=== PATIENT | male | born 1980 | race African-American/Black ===

== ENCOUNTER 2016-11-14 13:42 | Emergency (ER) | payer MEDICAID ==
[~2016-11-14] VITALS: Ht 172.7 cm; Wt 81.0 kg
[2016-11-14 13:44] VITALS: BP 106/77
== END 2016-11-15 00:15 | disposition left against medical advice (07) ==
LOC: ER 19:57
DX: S61.451A Open bite of right hand, initial encounter (principal); F17.200 Nicotine dependence, unspecified, uncomplicated; F15.10 Other stimulant abuse, uncomplicated; E11.9 Type 2 diabetes mellitus without complications; Z86.59 Personal history of other mental and behavioral disorders; W54.0XXA Bitten by dog, initial encounter; Y93.89 Activity, other specified; Y92.89 Other specified places as the place of occurrence of the external cause; Y99.8 Other external cause status

== ENCOUNTER 2016-11-28 22:27 | Emergency (ER) | payer MEDICAID ==
[~2016-11-28] VITALS: Ht 167.6 cm; Wt 68.0 kg
[2016-11-28 22:31] VITALS: BP 126/78
== END 2016-11-29 07:51 | disposition left against medical advice (07) ==
LOC: ER 22:50
DX: R06.02 Shortness of breath (principal); Z53.21 Procedure and treatment not carried out due to patient leaving prior to being seen by health care provider

== ENCOUNTER 2016-12-01 07:58 | Emergency (ER) | payer MEDICAID ==
[~2016-12-01] VITALS: Ht 177.8 cm; Wt 80.0 kg
[2016-12-01] MEDS ORDERED: HYDROCODONE/ACETAMINOPHEN 5/325MG TABLET PO ONE (09:45)
[2016-12-01 10:39] VITALS: BP 108/71
== END 2016-12-01 12:15 | disposition home or self-care (01) ==
LOC: ER 08:04
DX: Z76.0 Encounter for issue of repeat prescription (principal); R51 Headache; F20.9 Schizophrenia, unspecified; E11.9 Type 2 diabetes mellitus without complications
CPT/HCPCS: 99283; Z7610

== ENCOUNTER 2017-11-17 23:02 | Emergency (ER) | payer MEDICAID | END 2017-11-18 05:10 | disposition left against medical advice (07) | LOC: ER 23:02 | DX: Z53.21 Procedure and treatment not carried out due to patient leaving prior to being seen by health care provider (principal) ==

== ENCOUNTER 2017-11-18 04:18 | Emergency (ER) | payer MEDICAID ==
[~2017-11-18] VITALS: Ht 167.6 cm; Wt 86.0 kg
[2017-11-18 04:45] VITALS: BP 116/79
[2017-11-18 05:48] LABS: BASOPHILS % 0.8 % (0.0-2.0); EOSINOPHILS % 1.5 % (0.0-5.0); HEMATOCRIT. 40.6 % (42.0-52.0); HEMOGLOBIN. 14.2 g/dL (14.0-18.0); LYMPHOCYTES % 17.3 % (20.0-50.0); MEAN CORPUSCULAR HEMOGLOBIN 31.1 pg (28.0-32.0); MEAN CORPUSCULAR VOLUME 88.7 fL (80.0-94.0); MEAN PLATELET VOLUME 7.5 fl (7.4-10.4); MONOCYTES % 6.4 % (2.0-8.0); PLATELET 374 x1000/uL (130-400); RED BLOOD CELL COUNT 4.58 mill/uL (4.7-6.1); RED CELL DISTRIBUTION WIDTH 13.9 % (11.6-14.6)
[2017-11-18 05:51] LABS: CHLORIDE 103 mEq/L (98-107)
[2017-11-18 05:55] LABS: ETHANOL BLOOD < 10 mg/dL
[2017-11-18 07:11] LABS: CLARITY URINE CLEAR (CLEAR); COLOR URINE YELLOW (YELLOW); KETONES URINE NEGATIVE (NEGATIVE); LEUKOCYTE ESTERASE URINE NEGATIVE (NEGATIVE); NITRITE URINE NEGATIVE (NEGATIVE); OCCULT BLOOD URINE NEGATIVE (NEGATIVE); PROTEIN URINE NEGATIVE (NEGATIVE); SPECIFIC GRAVITY URINE 1.013 (1.005-1.030)
[2017-11-18 07:36] LABS: *AMPHETAMINES SCREEN URINE NEGATIVE (NEGATIVE); *BARBITURATES SCREEN URINE NEGATIVE (NEGATIVE); CANNABINOID URINE SCREEN PRESUMTIVE POSITIVE (NEGATIVE); OPIATES URINE SCREEN NEGATIVE (NEGATIVE); PHENCYCLIDINE URINE SCREEN NEGATIVE (NEGATIVE)
[2017-11-18 07:37] LABS: *BENZODIAZEPINES SCREEN URINE NEGATIVE (NEGATIVE); *COCAINE SCREEN URINE NEGATIVE (NEGATIVE); METHADONE URINE SCREEN NEGATIVE (NEGATIVE)
== END 2017-11-18 09:24 | disposition home or self-care (01) ==
LOC: ER 04:18
DX: F32.89 Other specified depressive episodes (principal); R45.851 Suicidal ideations; R03.0 Elevated blood-pressure reading, without diagnosis of hypertension; F12.90 Cannabis use, unspecified, uncomplicated; Z63.4 Disappearance and death of family member; F15.10 Other stimulant abuse, uncomplicated; E11.9 Type 2 diabetes mellitus without complications; E78.00 Pure hypercholesterolemia, unspecified; F17.210 Nicotine dependence, cigarettes, uncomplicated; F20.9 Schizophrenia, unspecified
CPT/HCPCS: 36415; 80053; 80305; 80307; 80329; 81003; 85025; 99284; G0482

== ENCOUNTER 2018-02-16 00:14 | Emergency (ER) | payer MEDICAID ==
[~2018-02-16] VITALS: Ht 168.9 cm; Wt 80.0 kg
[2018-02-16 00:23] VITALS: BP 119/86
== END 2018-02-16 04:45 | disposition left against medical advice (07) ==
LOC: ER 00:14
DX: R51 Headache (principal); Z53.21 Procedure and treatment not carried out due to patient leaving prior to being seen by health care provider

== ENCOUNTER 2018-02-16 23:33 | Emergency (ER) | payer MEDICAID ==
[~2018-02-16] VITALS: Ht 167.6 cm; Wt 79.6 kg
[2018-02-16 23:48] VITALS: BP 116/78
== END 2018-02-17 02:15 | disposition left against medical advice (07) ==
LOC: ER 02-17 00:04
DX: R44.0 Auditory hallucinations (principal); R44.1 Visual hallucinations; Z53.21 Procedure and treatment not carried out due to patient leaving prior to being seen by health care provider

== ENCOUNTER 2018-04-10 17:46 | Emergency (ER) | payer MEDICAID ==
[~2018-04-10] VITALS: Ht 165.1 cm; Wt 77.0 kg
[2018-04-10 17:52] VITALS: BP 114/53
== END 2018-04-10 23:50 | disposition left against medical advice (07) ==
LOC: ER 18:08
DX: Z00.8 Encounter for other general examination (principal); Z53.21 Procedure and treatment not carried out due to patient leaving prior to being seen by health care provider

== ENCOUNTER 2018-04-14 02:13 | Emergency (ER) | payer MEDICAID ==
[~2018-04-14] VITALS: Ht 165.1 cm; Wt 72.0 kg
[2018-04-14 02:17] VITALS: BP 137/90
== END 2018-04-14 03:00 | disposition left against medical advice (07) ==
LOC: ER 02:13
DX: Z53.21 Procedure and treatment not carried out due to patient leaving prior to being seen by health care provider (principal)

== ENCOUNTER 2018-04-14 02:37 | Emergency (ER) | payer MEDICAID | END 2018-04-14 03:00 | disposition left against medical advice (07) | LOC: ER 02:37 | DX: Z53.21 Procedure and treatment not carried out due to patient leaving prior to being seen by health care provider (principal) ==

== ENCOUNTER 2019-09-22 15:44 | Emergency (ER) | payer MEDICAID | END 2019-09-22 16:44 | disposition left against medical advice (07) | LOC: ER 15:44 | DX: Z04.6 Encounter for general psychiatric examination, requested by authority (principal); Z53.21 Procedure and treatment not carried out due to patient leaving prior to being seen by health care provider ==

== ENCOUNTER 2021-01-17 16:04 | Emergency (ER) | payer MEDICAID, OTHER ==
[~2021-01-17] VITALS: Ht 172.7 cm; Wt 68.0 kg
[2021-01-17 17:38] LABS: CLARITY URINE CLEAR (CLEAR); COLOR URINE YELLOW (YELLOW); KETONES URINE NEGATIVE (NEGATIVE); LEUKOCYTE ESTERASE URINE NEGATIVE (NEGATIVE); NITRITE URINE NEGATIVE (NEGATIVE); OCCULT BLOOD URINE NEGATIVE (NEGATIVE); PROTEIN URINE NEGATIVE (NEGATIVE); SPECIFIC GRAVITY URINE 1.009 (1.005-1.030)
[2021-01-17 17:47] LABS: *AMPHETAMINES SCREEN URINE NEGATIVE (NEGATIVE); *COCAINE SCREEN URINE NEGATIVE (NEGATIVE); CANNABINOID URINE SCREEN PRESUMTIVE POSITIVE (NEGATIVE); OPIATES URINE SCREEN NEGATIVE (NEGATIVE)
[2021-01-17 17:49] LABS: *BARBITURATES SCREEN URINE NEGATIVE (NEGATIVE); *BENZODIAZEPINES SCREEN URINE NEGATIVE (NEGATIVE); METHADONE URINE SCREEN NEGATIVE (NEGATIVE); PHENCYCLIDINE URINE SCREEN NEGATIVE (NEGATIVE)
[2021-01-17 18:04] LABS: BASOPHILS % 0.6 % (0.0-2.0); EOSINOPHILS % 1.5 % (0.0-5.0); HEMATOCRIT. 40.4 % (42.0-52.0); MEAN CORPUSCULAR HEMOGLOBIN 30.7 pg (28.0-32.0); MEAN CORPUSCULAR VOLUME 88.6 fL (80.0-94.0); MEAN PLATELET VOLUME 8.3 fl (7.4-10.4); MONOCYTES % 8.3 % (2.0-8.0); NEUTROPHILS % 69.6 % (40.0-76.0); PLATELET 375 x1000/uL (130-400); RED BLOOD CELL COUNT 4.56 mill/uL (4.7-6.1); RED CELL DISTRIBUTION WIDTH 15.8 % (11.6-14.6)
[2021-01-17 18:07] LABS: CHLORIDE 107 mEq/L (98-107)
[2021-01-17 18:12] LABS: ETHANOL BLOOD < 10 mg/dL
[2021-01-18] MEDS ORDERED: BUPROPION HCL 75MG TABLET PO ONE (07:00)
[2021-01-18] MEDS ORDERED: BUPR75TA8 PO (09:06)
[2021-01-18 09:15] VITALS: BP 123/80
== END 2021-01-18 09:15 | disposition home or self-care (01) ==
LOC: ER 16:15
DX: R45.851 Suicidal ideations (principal); R45.850 Homicidal ideations; F20.9 Schizophrenia, unspecified; F31.9 Bipolar disorder, unspecified; F43.10 Post-traumatic stress disorder, unspecified; Z88.8 Allergy status to other drugs, medicaments and biological substances; Z98.890 Other specified postprocedural states
CPT/HCPCS: 36415; 80053; 80305; 80307; 80320; 80329; 81003; 85025; 99285; C9803; U0003; U0005; Z7610; G0480

== ENCOUNTER 2021-01-19 04:10 | Emergency (ER) | payer OTHER ==
[~2021-01-19] VITALS: Ht 170.2 cm; Wt 65.0 kg
[~2021-01-19 04:10] MED LIST: BUPR75TA8 PO
[2021-01-19 04:56] VITALS: BP 117/82
== END 2021-01-19 04:43 | disposition home or self-care (01) ==
LOC: ER 04:10
DX: F91.8 Other conduct disorders (principal); F68.12 Factitious disorder imposed on self, with predominantly physical signs and symptoms; F31.9 Bipolar disorder, unspecified; F20.9 Schizophrenia, unspecified; Z88.8 Allergy status to other drugs, medicaments and biological substances
CPT/HCPCS: 99283

== ENCOUNTER 2021-05-04 23:33 | Emergency (ER) | payer MEDICAID, OTHER ==
[~2021-05-04] VITALS: Ht 175.3 cm; Wt 72.0 kg
[2021-05-05] MEDS ORDERED: LORAZEPAM 2MG/ML CPJ IV STA (00:11)
[2021-05-05] MEDS ORDERED: ZIPRASIDONE HCL 20MG CAPSULE PO STA (00:11)
[2021-05-05] MEDS ORDERED: SODIUM CHLORIDE 0.9% 1,000 ML IV ONE (00:15)
[2021-05-05 00:47] LABS: BASOPHILS % 0.9 % (0.0-2.0); EOSINOPHILS % 1.2 % (0.0-5.0); HEMATOCRIT. 43.3 % (42.0-52.0); HEMOGLOBIN. 15.2 g/dL (14.0-18.0); LYMPHOCYTES % 21.2 % (20.0-50.0); MEAN CORPUSCULAR HEMOGLOBIN 31.6 pg (28.0-32.0); MEAN CORPUSCULAR VOLUME 89.9 fL (80.0-94.0); MONOCYTES % 6.6 % (2.0-8.0); NEUTROPHILS % 70.1 % (40.0-76.0); PLATELET 322 x1000/uL (130-400); RED BLOOD CELL COUNT 4.82 mill/uL (4.7-6.1)
[2021-05-05 00:54] LABS: CHLORIDE 105 mEq/L (98-107)
[2021-05-05 00:58] LABS: ETHANOL BLOOD 24 mg/dL
[2021-05-05 04:16] LABS: CLARITY URINE CLEAR (CLEAR); COLOR URINE YELLOW (YELLOW); KETONES URINE NEGATIVE (NEGATIVE); LEUKOCYTE ESTERASE URINE NEGATIVE (NEGATIVE); NITRITE URINE NEGATIVE (NEGATIVE); OCCULT BLOOD URINE NEGATIVE (NEGATIVE); PROTEIN URINE NEGATIVE (NEGATIVE); SPECIFIC GRAVITY URINE 1.009 (1.005-1.030)
[2021-05-05 05:08] LABS: *AMPHETAMINES SCREEN URINE NEGATIVE (NEGATIVE); *BARBITURATES SCREEN URINE NEGATIVE (NEGATIVE); *BENZODIAZEPINES SCREEN URINE NEGATIVE (NEGATIVE); *COCAINE SCREEN URINE NEGATIVE (NEGATIVE); METHADONE URINE SCREEN NEGATIVE (NEGATIVE); OPIATES URINE SCREEN NEGATIVE (NEGATIVE)
[2021-05-05 05:09] LABS: CANNABINOID URINE SCREEN PRESUMTIVE POSITIVE (NEGATIVE); PHENCYCLIDINE URINE SCREEN NEGATIVE (NEGATIVE)
[2021-05-05] MEDS: OLANZAPINE 5MG TABLET ODT PO SCH ×2 (09:27→18:34)
[2021-05-05] MEDS: BUPROPION HCL 75MG TABLET PO SCH ×2 (09:29→21:00)
[2021-05-06 02:00] VITALS: BP 122/78
== END 2021-05-06 02:10 | disposition home or self-care (01) ==
LOC: ER 23:33
DX: R45.851 Suicidal ideations (principal); F12.10 Cannabis abuse, uncomplicated; Z20.822 Contact with and (suspected) exposure to COVID-19; Z88.2 Allergy status to sulfonamides; Z86.59 Personal history of other mental and behavioral disorders
CPT/HCPCS: 87426; 96374; 99285; J2060; J7030

== ENCOUNTER 2021-06-03 20:51 | Emergency (ER) | payer MEDICAID, OTHER ==
[~2021-06-03] VITALS: Ht 172.7 cm; Wt 68.0 kg
[2021-06-03] MEDS ORDERED: SODIUM CHLORIDE 0.9% 1,000 ML IV ONE (22:30)
[2021-06-04] MEDS ORDERED: LORAZEPAM 2MG/ML CPJ IM ONE (01:15)
[2021-06-04] MEDS ORDERED: OLANZAPINE 10 MG/VIAL IM ONE (01:15)
[2021-06-04 01:18] LABS: CLARITY URINE CLEAR (CLEAR); COLOR URINE YELLOW (YELLOW); KETONES URINE NEGATIVE (NEGATIVE); LEUKOCYTE ESTERASE URINE NEGATIVE (NEGATIVE); NITRITE URINE NEGATIVE (NEGATIVE); OCCULT BLOOD URINE NEGATIVE (NEGATIVE); PH URINE 5.5 (4.5-8.0); PROTEIN URINE NEGATIVE (NEGATIVE); SPECIFIC GRAVITY URINE 1.018 (1.005-1.030)
[2021-06-04 01:38] LABS: *AMPHETAMINES SCREEN URINE NEGATIVE (NEGATIVE); *BARBITURATES SCREEN URINE NEGATIVE (NEGATIVE); *BENZODIAZEPINES SCREEN URINE NEGATIVE (NEGATIVE); *COCAINE SCREEN URINE NEGATIVE (NEGATIVE); METHADONE URINE SCREEN NEGATIVE (NEGATIVE); OPIATES URINE SCREEN NEGATIVE (NEGATIVE)
[2021-06-04 01:39] LABS: CANNABINOID URINE SCREEN PRESUMTIVE POSITIVE (NEGATIVE); PHENCYCLIDINE URINE SCREEN PRESUMTIVE POSITIVE (NEGATIVE)
[2021-06-04] MEDS ORDERED: LORAZEPAM 2MG/ML CPJ IM STA (01:40)
[2021-06-04 03:22] LABS: BASOPHILS % 0.6 % (0.0-2.0); EOSINOPHILS % 2.1 % (0.0-5.0); HEMATOCRIT. 37.8 % (42.0-52.0); HEMOGLOBIN. 13.3 g/dL (14.0-18.0); LYMPHOCYTES % 18.5 % (20.0-50.0); MEAN CORPUSCULAR HEMOGLOBIN 31.4 pg (28.0-32.0); MEAN CORPUSCULAR VOLUME 89.3 fL (80.0-94.0); MEAN PLATELET VOLUME 7.3 fl (7.4-10.4); MONOCYTES % 7.5 % (2.0-8.0); NEUTROPHILS % 71.3 % (40.0-76.0); PLATELET 340 x1000/uL (130-400); RED BLOOD CELL COUNT 4.23 mill/uL (4.7-6.1); RED CELL DISTRIBUTION WIDTH 14.6 % (11.6-14.6)
[2021-06-04 03:28] LABS: CHLORIDE 108 mEq/L (98-107)
[2021-06-04 03:32] LABS: ETHANOL BLOOD < 10 mg/dL
[2021-06-04 05:27] VITALS: BP 138/78
[2021-06-04] MEDS ORDERED: BUPR75TA8 MT (10:50)
[2021-06-04] MEDS ORDERED: ALBU6.7H9 INH (10:50)
[2021-06-05] MEDS ORDERED: MINE50OI TP (03:20)
[2021-06-05] MEDS ORDERED: ALBU6.7H15 INH (03:20)
== END 2021-06-04 11:42 | disposition home or self-care (01) ==
LOC: ER 20:51
DX: R45.851 Suicidal ideations (principal); T40.995A Adverse effect of other psychodysleptics [hallucinogens], initial encounter; Y92.89 Other specified places as the place of occurrence of the external cause; F31.9 Bipolar disorder, unspecified; F20.9 Schizophrenia, unspecified; Z20.822 Contact with and (suspected) exposure to COVID-19
CPT/HCPCS: 36415; 80053; 80305; 80307; 80320; 80329; 81003; 85025; 87426; 96372; 99284; C9803; J2060; J3490; J7030; U0003; U0005; G0480

== ENCOUNTER 2021-06-05 02:18 | Emergency (ER) | payer OTHER ==
[~2021-06-05] VITALS: Ht 175.3 cm; Wt 69.0 kg
[~2021-06-05 02:18] MED LIST changes: +ALBU6.7H9 INH; +BUPR75TA8 MT
[2021-06-05] MEDS ORDERED: MINE50OI TP (03:20)
[2021-06-05] MEDS ORDERED: ALBU6.7H15 INH (03:20)
[2021-06-05 03:25] VITALS: BP 105/73
== END 2021-06-05 03:28 | disposition home or self-care (01) ==
LOC: ER 02:18
DX: Z76.0 Encounter for issue of repeat prescription (principal)
CPT/HCPCS: 99283